=== PATIENT | female | born 1940 | race Caucasian/White ===

== ENCOUNTER → 2019-05-30 14:17 | Outpatient (CLI) | payer MEDICARE, BC, SELFPAY ==
--- NOTE | 2019-05-30 14:19 | DI.RAD.S_ITS ---
PROCEDURE: XR LUMBAR SPINE MIN 4V INDICATIONS: Bilateral hip DJD TECHNIQUE: 5 views of the lumbar spine were acquired. COMPARISON: None. FINDINGS: Bones: No fracture or focal osseous destruction. Multilevel degenerative endplate sclerosis and spurring. Diffuse facet arthropathy. Diffuse mild to moderate disc space narrowing throughout the lumbar spine. Mild L5-S1 disc space narrowing. Bilateral hip joint degeneration. Mild dextrocurvature centered at L3 Soft tissues: Overlying bowel gas pattern is normal. No suspicious soft tissue calcifications. Oblique images: No pars defects. IMPRESSION: Diffuse lumbar spondylosis and facet arthropathy as above. Mild dextrocurvature. Dictated by: John Abrams M.D. on 05/30/2019 at 15:28 Approved by: John Abrams M.D. on 05/30/2019 at 15:30
--- NOTE | 2019-05-30 14:19 | DI.RAD.S_ITS ---
PROCEDURE: XR HIP W PEL IF DONE LT MIN 4V INDICATIONS: Bilateral hip DJD TECHNIQUE: AP pelvis with lateral view(s) of the left and right hip(s). COMPARISON: None. FINDINGS: Bones: No fractures or dislocations. Pelvic ring appears intact. No suspicious bony lesions. Lower lumbar spondylosis. Mild to moderate bilateral hip joint degeneration. Degenerative sclerosis and spurring also present at the pubis symphysis. Soft tissues: The visualized bowel gas pattern is normal. No suspicious soft tissue calcifications. IMPRESSION: Mild-moderate bilateral hip degeneration. Lower lumbar spondylosis. Dictated by: John Abrams M.D. on 05/30/2019 at 15:30 Approved by: John Abrams M.D. on 05/30/2019 at 15:33
== END ==
PROVIDERS: PCP Family Medicine; Visit Provider Physical Medicine & Rehabilitation
DX: M16.0 Bilateral primary osteoarthritis of hip (principal); M47.27 Other spondylosis with radiculopathy, lumbosacral region
CPT/HCPCS: 72110; 73522; 99214

== ENCOUNTER → 2020-11-28 11:31 | Outpatient (CLI) | payer MEDICARE, BC, SELFPAY ==
--- NOTE | 2020-11-28 | DI.US.S_ITS ---
PROCEDURE: US RENAL COMPLETE INDICATIONS: Unspecified renal colic TECHNIQUE: Real-time scanning was performed of the kidneys and bladder, with image documentation. COMPARISON: None. FINDINGS: Kidneys: Kidneys are normal in size. Right kidney measures 9.3 cm long; left kidney measures 10.3 cm long. Right renal cortical thickness is 1.3 cm; left renal cortical thickness is 1.3 cm. Renal cortical echotexture is normal. Mild right-sided hydronephrosis or nephrolithiasis. No suspicious solid mass lesions. There are scattered right-sided simple renal cortical cysts, the largest measuring 1.8 cm in maximal dimension. Scattered echogenic foci are present, potentially small vascular calcifications versus nonobstructive punctate calculi. Bladder: Pre-void bladder volume is 195 mL. Post-void residual is 12 mL. Pre-void images demonstrate no intraluminal masses or stones. On pre-void images, bilateral ureteral jets are noted with color Doppler interrogation. (Of note, ureteral jets may not be detectable in up to 25% of cases due to insufficient differences in specific gravity between ureteral and bladder urine). Miscellaneous: No free pelvic fluid. IMPRESSION: Mild persistent right-sided hydronephrosis, etiology uncertain. Reported right flank pain. CT scan without and with contrast is recommended to assess for presence or absence of ureteral stone or some form of mass effect impinging on the course of the right ureter. Dictated by: Rich Parra M.D. on 11/28/2020 at 14:09 Approved by: Rich Parra M.D. on 11/28/2020 at 14:12
== END ==
PROVIDERS: PCP Family Medicine; Referring Provider Physician Assistant; Visit Provider Physician Assistant
DX: N23 Unspecified renal colic (principal); N13.30 Unspecified hydronephrosis; R31.9 Hematuria, unspecified; Z80.51 Family history of malignant neoplasm of kidney
CPT/HCPCS: 76770

== ENCOUNTER → 2020-12-03 08:21 | Outpatient (CLI) | payer MEDICARE, BC, SELFPAY ==
[2020-12-03 09:19] LABS: BUN Creatinine Ratio 18.9 (6-22); Blood Urea Nitrogen 17 mg/dL (7-17); Estimated Glomerular Filt Rate > 60.0 mL/min (>60)
--- NOTE | 2020-12-03 09:23 | DI.CT.S_ITS ---
PROCEDURE: CT ABDOMEN PELVIS WO/W CON INDICATIONS: unspecified renal colic TECHNIQUE: Optional 5 mm thick noncontrast images acquired from the diaphragm to the symphysis pubis. After the administration of intravenous contrast, 5 mm thick images acquired from the diaphragm to the symphysis pubis after a 10-minute delay. 2 mm thick coronal and sagittal reformats were then performed of the kidneys and ureters. For radiation dose reduction, the following was used: automated exposure control, adjustment of mA and/or kV according to patient size. COMPARISON: [facility], , US RENAL COMPLETE, 11/28/2020, 11:38. FINDINGS: Image quality: Excellent. Lung bases: Lung bases are clear. Heart size is normal. Urinary system: Both kidneys are normal in size, without hydronephrosis or nephrolithiasis on pre-contrast images. No perinephric fat stranding. There is normal bilateral renal enhancement. Renal calyces appear normal in morphology when filled with contrast. Opacified portions of both ureters demonstrate normal caliber. Bladder wall thickness is normal. No calcified bladder stones. There are multiple peripelvic cysts in the right kidney impressing upon the collecting system which, by ultrasound, give the appearance of hydronephrosis. Other solid organs: Liver is normal in size and enhancement. Gallbladder is surgically absent . Resultant biliary ductal dilatation post cholecystectomy without obstructing pancreatic mass identified. Pancreas enhances normally. Spleen is normal in size and enhancement. No adrenal nodules. Peritoneum and bowel: Bowel loops demonstrate normal wall thickness and caliber. No free fluid or air. Nodes and vessels: No retroperitoneal or mesenteric adenopathy by size criteria. Aorta and inferior vena cava are normal in size. Abdominal wall: No ventral hernias. Pelvis: No pathologic free pelvic fluid. No inguinal hernias or adenopathy. There is abnormal endometrial thickening in the fundus of the uterus measuring approximately 1.2 cm. Bones: No suspicious bony lesions. No vertebral body compression fractures. IMPRESSION: 1. Findings on prior renal ultrasound represent peripelvic cysts and not hydronephrosis. 2. No evidence of renal stone, ureteral stone, hydronephrosis, or suspicious lesion. 3. Note made of abnormal thickening of the endometrial cavity of the uterus at the level of the fundus, measuring 1.2 cm. Possible endometrial carcinoma. 4. Remote cholecystectomy, with resultant dilatation of the biliary tree. Comment: Recommend [facility] [employer] DRIVER consultation for abnormal endometrial thickening. Dictated by: Abdon Whalen M.D. on 12/03/2020 at 9:55 Approved by: Abdon Whalen M.D. on 12/03/2020 at 10:01
== END ==
PROVIDERS: PCP Family Medicine; Referring Provider Family Medicine; Visit Provider Family Medicine
DX: R31.9 Hematuria, unspecified (principal); N23 Unspecified renal colic; N28.1 Cyst of kidney, acquired; R93.89 Abnormal findings on diagnostic imaging of other specified body structures
CPT/HCPCS: 36415; 74178; 82565; 84520

== ENCOUNTER → 2020-12-23 09:13 | Outpatient (CLI) | payer MEDICARE, BC, SELFPAY ==
--- NOTE | 2020-12-23 | DI.MRI.S_ITS ---
PROCEDURE: MR LUMBAR SPINE WO CON INDICATIONS: Low back pain TECHNIQUE: Noncontrast sagittal T1 spin echo and T2 fast echo, sagittal STIR, axial T1 and T2 fast spin echo through the lumbar spine. In cases with scoliosis, additional coronal T2 fast spin echo may be performed. COMPARISON: [facility], CR, XR LUMBAR SPINE MIN 4V, 05/30/2019, 14:26. FINDINGS: Image quality: Excellent. Alignment and Curvature: There is trace retrolithesis of L1 on L2, L2 on L3. Bone Marrow: Marrow is of normal overall signal. Minimal reactive endplate changes at L2-3, L3-4, L4-5. No acute vertebral body compression fractures. Spinal Cord: Conus medullaris terminates at the L1 level. Visualized cord demonstrates normal signal and size. Paraspinous Soft Tissues: No paravertebral masses. T2 hyperintensities in the kidneys, suggestive of cyts. Moderate to severe dessication is present throughout the lumbar spine. L1-L2: Mild disc bulge without spinal stenosis. Minimal left foraminal narrowing with facet/ligamentum flavum hypertrophy. L2-L3: Mild disc bulge without spinal stenosis. Minimal left foraminal narrowing with facet/ligamentum flavum hypertrophy. L3-L4: Mild disc bulge with minimal canal narrowing. Mild left and bilateral foraminal narrowing with facet/ligamentum flavum hypertrophy. L4-L5: Mild disc bulge with mild spinal stenosis. Mild left and severe right foraminal narrowing with facet/ligamentum flavum hypertrophy. There is mild flattening of the exiting right L4 nerve root. L5-S1: Mild disc bulge without spinal stenosis. Severe right and moderate to severe left foraminal narrowing with facet and ligamentum flavum hypertrophy. There is mild flattening of the exiting right L5 nerve root. IMPRESSION: 1. Multilevel foraminal narrowing severe at L4-5 and L5-S1 secondary to facet/ligamentum flavum arthropathy. 2. Minimal to mild spinal stenosis most notable at L4-5 secondary to disc bulge with contributing effect facet/ligamentum flavum arthropathy. Dictated by: Samina Garcia M.D. on 12/24/2020 at 9:15 Approved by: Samina Garcia M.D. on 12/24/2020 at 9:45
== END ==
PROVIDERS: PCP Family Medicine; Referring Provider Student in an Organized Health Care Education/Training Program; Visit Provider Student in an Organized Health Care Education/Training Program
DX: M47.816 Spondylosis without myelopathy or radiculopathy, lumbar region (principal); M47.817 Spondylosis without myelopathy or radiculopathy, lumbosacral region; M48.061 Spinal stenosis, lumbar region without neurogenic claudication; M48.07 Spinal stenosis, lumbosacral region; M51.26 Other intervertebral disc displacement, lumbar region; R10.9 Unspecified abdominal pain
CPT/HCPCS: 72148

== ENCOUNTER → 2021-01-09 11:55 | Outpatient (CLI) | payer MEDICARE, BC, SELFPAY ==
[2021-01-09 19:41] LABS: Hematocrit 38.1 % (36-46); Hemoglobin 12.7 g/dL (12.0-16.0); Mean Corpuscular HGB Conc 33.3 % (30-36); Mean Corpuscular Hemoglobin 29.2 PG (26-34); Mean Corpuscular Volume 87.7 fL (80-100); Platelet Count 291 X10^3/uL (150-400); Red Blood Cell Count 4.34 X10^6/uL (4.0-5.2); Red Cell Distribution Width 13.3 % (11.6-14.8); White Blood Cell Count 7.8 X10^3/uL (4.5-11.0)
[2021-01-09 19:49] LABS: BUN Creatinine Ratio 23.3 (6-22); Blood Urea Nitrogen 17 mg/dL (7-17); Calcium 9.6 mg/dL (8.4-10.2); Carbon Dioxide 29 mmol/L (22-32); Chloride 106 mmol/L (98-107); Estimated Glomerular Filt Rate > 60.0 mL/min (>60); Glucose 90 mg/dL (80-110); HEMOLYSIS < 15 (0-50); Potassium 3.9 mmol/L (3.4-5.1); Sodium 141 mmol/L (137-145)
== END ==
PROVIDERS: PCP Family Medicine; Visit Provider Specialist
DX: M47.27 Other spondylosis with radiculopathy, lumbosacral region (principal); R93.89 Abnormal findings on diagnostic imaging of other specified body structures; Z01.818 Encounter for other preprocedural examination
CPT/HCPCS: 80048; 85027

== ENCOUNTER 2021-01-18 16:15 | Emergency (ER) | payer MEDICARE, BC, SELFPAY ==
[2021-01-18] VITALS (11 sets, daily range): BP systolic 141–185; BP diastolic 67–94; PULSE 77–89; RESP 14–34; TEMP 37; O2SAT 95–99
--- NOTE | 2021-01-18 16:22 | DI.CT.S_ITS ---
PROCEDURE: CT HEAD/BRAIN WO CON INDICATIONS: altered mental status TECHNIQUE: Noncontrast 4.5 mm thick angled axial sections acquired from the foramen magnum to the vertex, with coronal and sagittal reformats. For radiation dose reduction, the following was used: automated exposure control, adjustment of mA and/or kV according to patient size. COMPARISON: None. FINDINGS: Image quality: Excellent. CSF spaces: Basal cisterns are patent. No extra-axial fluid collections. The ventricles are symmetric in size and shape. Brain: No intracranial bleeds or masses. There is cerebral volume loss for age, with resultant ventricular and sulcal prominence. There are periventricular and deep white matter chronic small vessel ischemic changes. There is intracranial internal carotid artery atherosclerosis. Skull and face: Calvarium and visualized facial bones appear intact, without suspicious lesions. Sinuses: The visualized right maxillary sinus is completely opacified. There is moderate mucosal thickening within the anterior right ethmoid air cells. The paranasal sinuses otherwise appear clear. No abnormal fluid is seen within the mastoid air cells. IMPRESSION: Unremarkable intracranial study for age. Right-sided paranasal sinus disease noted. Dictated by: Garry Interiano M.D. on 01/18/2021 at 16:13 Approved by: Garry Interiano M.D. on 01/18/2021 at 16:14
[2021-01-18] MEDS: SODIUM CHLORIDE 0.9% 1,000 ML 150 ML IV (16:28)
--- NOTE | 2021-01-18 16:33 | ED_ITS ---
HPI - Altered Mental Status General Chief Complaint: Altered Mental Status Stated Complaint: Altered LOC Time Seen by Provider: 01/18/21 16:22 Source: patient and EMS Mode of arrival: EMS Limitations: no limitations History of Present Illness HPI narrative: Patient is a 80-year-old female who presents with altered mental status and possible stroke. She woke up early this morning around 5pm or6:00 a.m. and was feeling okay she got some coffee is and went to her room to do some things on the computer. She then at some point went in to see her daughter, her daughter stated that her eyes looked funny and that something was probably not right. She maybe had some slurring of speech. At that point EMS was called she was found to be hypoglycemic with a glucose of 54. She has no history of diabetes she is not on any glucose lowering medications. EMS reports that they gave her glucagon rechecked her glucose which was now well over 100 but continued have some slurred speech. She had no other focal deficits. His symptoms now have completely resolved. MD complaint: altered mental status and confusion Related Data Home Medications Medication Instructions Recorded Confirmed diazepam 5 mg tablet 5 mg PO BID PRN 05/30/19 01/07/21 metoprolol succinate 50 mg capsule 50 mg PO DAILY 05/30/19 01/07/21 sprinkle, ext. release 24 hr Allergies Allergy/AdvReac Type Severity Reaction Status Date / Time No Known Drug Allergies Allergy Verified 01/18/21 16:23 Review of Systems Review of Systems ROS Unobtainable: All systems reviewed & are unremarkable except as noted in HPI and below Constitutional Constitutional: Denies chills, Denies fever(s), Denies lethargy and Denies weakness Neurologic Neurologic: Denies weakness Patient History Medical History (Updated 01/18/21 @ 20:08 by Amrita Sood DO) Degenerative joint disease (DJD) of hip Family history of malignant neoplasm of kidney Grieving Hematuria Lumbosacral spondylosis with radiculopathy Osteoporosis Renal colic Social History Smoking Status: Former smoker Smoking Status: Former smoker alcohol intake frequency: 0-2 drinks per day Substance Use Type: does not use Exam Initial Vital Signs Initial Vital Signs: Vital Signs Temperature 98.6 F 01/18/21 16:10 Pulse Rate 77 01/18/21 16:10 Respiratory Rate 14 01/18/21 16:10 Blood Pressure 185/87 H 01/18/21 16:10 Pulse Oximetry 99 01/18/21 16:10 GENERAL: Alert 80-year-old female and in no acute distress. HEENT: Head atraumatic,EOMI, pupils reactive, face symmetric, moist mucous membranes CARDIOVASCULAR: Regular rate and rhythm without murmurs, rubs or gallops. RESPIRATORY: Breath sounds equal bilaterally, no wheezes rales or rhonchi. ABDOMEN: Soft, nontender. Normoactive bowel sounds all 4 quadrants. No guardin g or rebound. EXTREMITIES: Normal range of motion, no clubbing or edema. Neurovascularly intact NEUROLOGICAL: Alert and oriented x4.Normal gait and speech. Cranial nerves II through XII grossly intact. Good [id number], good [id number], strength equal bilaterally, no dysarthria or aphasia, sensation in tact to soft touch bilaterally, no visual changes, no facial droop SKIN: Warm, dry, no laceration, no petechiae, no rashes or lesions. Scores NIH Stroke Scale Level of Conciousness: Alert, keenly responsive Ask month/age: Answers both questions correctly. Open/close eyes, close hand: Performs both tasks correctly Best gaze horizontal: Normal Visual hampton: No visual loss Facial palsy: Normal symetrical movement Left arm drift: No drift for full 10 sec Right arm drift: No drift for full 10 sec Left leg drift: No drift for full 5 sec Right leg drift: No drift for full 5 sec Limb ataxia: Absent Sensory on face/arms/legs: Normal, no sensory loss Best language: No aphasia, normal Dysarthria: Normal Extinction or inattention: No abnormality Total NIH Stroke scale score: 0 Course Orders Ordered: ED Orders 01/18/21 16:22 CT head/brain wo con Stat Urinalysis and Microscopic Stat 01/18/21 16:31 COVID19 - ADMIT (FIRER RETORT swab/PCR) Stat Urine Drug Screen, Rapid Stat EKG-12 Lead Stat 01/18/21 16:40 Blood Culture Stat 01/18/21 16:45 Acetaminophen Stat Complete Blood Count AUTO DIFF Stat Comprehensive Metabolic Panel Stat Ethanol (ETOH) Stat Lactate (Lactic Acid) Stat Partial Thromboplastin Time Stat Procalcitonin Stat Prothrombin Time INR Stat Salicylate Stat Thyroid Stimulating Hormone Stat Troponin & CK Cardiac Panel Stat Sodium Chloride (Normal Saline 0.9%) 1,000 mls @ 150 mls/hr IV CONT ZOE Last Admin: 01/18/21 16:28 Dose: 150 mls/hr Documented by: ADRIANA Vital Signs Vital signs: Vital Signs - 8 hr 01/18/21 16:10 01/18/21 16:20 01/18/21 16:30 Temperature 98.6 F Pulse Rate 77 83 79 Respiratory Rate 14 26 H Blood Pressure 185/87 H Pulse Oximetry 99 97 96 01/18/21 17:01 01/18/21 17:03 01/18/21 17:30 Temperature Pulse Rate 82 77 80 Respiratory Rate 34 H 27 H 25 H Blood Pressure 164/70 H 155/87 H Pulse Oximetry 96 99 97 01/18/21 18:00 01/18/21 18:30 01/18/21 19:00 Temperature Pulse Rate 80 82 78 Respiratory Rate 29 H 21 21 Blood Pressure 147/89 H 158/94 H 155/84 H Pulse Oximetry 97 97 98 MDM - Altered Mental Status Lab Data Attestation: I reviewed the patient's lab results. Result diagrams: 01/18/21 16:45 01/18/21 16:45 Labs: Lab Results 01/18/21 01/18/21 01/18/21 Range/Units 16:31 16:45 16:45 WBC 7.0 (4.5-11.0) X10^3/uL RBC 4.36 (4.0-5.2) X10^6/uL Hgb 12.7 (12.0-16.0) g/dL Hct 38.3 (36-46) % MCV 87.7 (80-100) fL MCH 29.1 (26-34) PG MCHC 33.2 (30-36) % RDW 13.4 (11.6-14.8) % Plt Count 268 (150-400) X10^3/uL Neut % (Auto) 73.7 (50-75) % Lymph % (Auto) 18.7 L (25-40) % [place] % (Auto) 5.9 (3-14) % Eos % (Auto) 1.3 L (2-4) % Baso % (Auto) 0.4 (0-2) % Neut # (Auto) 5100 (6529-0613) /uL Lymph # (Auto) 1300 (2995-1672) /uL [place] # (Auto) 400 (0-900) /uL Eos # (Auto) 100 (0-450) /uL Baso # (Auto) 0 (0-100) /uL PT 10.5 (10.1-12.7) SECONDS INR 1.0 (0.9-1.3) APTT 33 (26.4-36.2) SECONDS Sodium (137-145) mmol/L Potassium (3.4-5.1) mmol/L Chloride (98-107) mmol/L Carbon Dioxide (22-32) mmol/L BUN (7-17) mg/dL Creatinine (0.52-1.04) mg/dL Estimated GFR (>60) mL/min BUN/Creatinine Ratio (6-22) Glucose (80-110) mg/dL Lactate (0.7-2.1) mmol/L Calcium (8.4-10.2) mg/dL Total Bilirubin (0.2-1.3) mg/dL AST (14-36) IU/L ALT (<35) IU/L Alkaline Phosphatase (38-126) U/L Total Creatine Kinase (30-135) U/L CK-MB (CK-2) CK-MB (CK-2) Rel Index Troponin I (0.01-0.034) ng/mL Total Protein (6.3-8.2) g/dL Albumin (3.5-5.0) g/dL Globulin (1.7-4.1) g/dL Albumin/Globulin Ratio (1.0-2.8) Procalcitonin (<0.5) ng/mL TSH (0.47-4.68) uIU/mL Salicylates (<20) mg/dL Acetaminophen (10-30) ug/mL Ethyl Alcohol ( - 10) mg/dL SARS-CoV-2 (PCR) Negative (Negative) 01/18/21 01/18/21 01/18/21 Range/Units 16:45 16:45 16:45 WBC (4.5-11.0) X10^3/uL RBC (4.0-5.2) X10^6/uL Hgb (12.0-16.0) g/dL Hct (36-46) % MCV (80-100) fL MCH (26-34) PG MCHC (30-36) % RDW (11.6-14.8) % Plt Count (150-400) X10^3/uL Neut % (Auto) (50-75) % Lymph % (Auto) (25-40) % [place] % (Auto) (3-14) % Eos % (Auto) (2-4) % Baso % (Auto) (0-2) % Neut # (Auto) (6879-2076) /uL Lymph # (Auto) (9809-5240) /uL [place] # (Auto) (0-900) /uL Eos # (Auto) (0-450) /uL Baso # (Auto) (0-100) /uL PT (10.1-12.7) SECONDS INR (0.9-1.3) APTT (26.4-36.2) SECONDS Sodium 139 (137-145) mmol/L Potassium 3.3 L (3.4-5.1) mmol/L Chloride 106 (98-107) mmol/L Carbon Dioxide 26 (22-32) mmol/L BUN 11 (7-17) mg/dL Creatinine 0.69 (0.52-1.04) mg/dL Estimated GFR > 60.0 (>60) mL/min BUN/Creatinine Ratio 15.9 (6-22) Glucose 173 H (80-110) mg/dL Lactate 1.6 (0.7-2.1) mmol/L Calcium 9.7 (8.4-10.2) mg/dL Total Bilirubin 0.3 (0.2-1.3) mg/dL AST 29 (14-36) IU/L ALT 19 (<35) IU/L Alkaline Phosphatase 58 (38-126) U/L Total Creatine Kinase 69 (30-135) U/L CK-MB (CK-2) TNP CK-MB (CK-2) Rel Index TNP Troponin I < 0.012 (0.01-0.034) ng/mL Total Protein 7.1 (6.3-8.2) g/dL Albumin 4.0 (3.5-5.0) g/dL Globulin 3.1 (1.7-4.1) g/dL Albumin/Globulin Ratio 1.3 (1.0-2.8) Procalcitonin 0.04 (<0.5) ng/mL TSH 1.42 (0.47-4.68) uIU/mL Salicylates < 1.0 (<20) mg/dL Acetaminophen < 10 L (10-30) ug/mL Ethyl Alcohol < 10 ( - 10) mg/dL SARS-CoV-2 (PCR) (Negative) Point of Care Testing Glucose POC [address] scan - head: Radiologist's Impression: PROCEDURE: CT HEAD/BRAIN WO CON INDICATIONS: altered mental status TECHNIQUE: Noncontrast 4.5 mm thick angled axial sections acquired from the foramen magnum to the vertex, with coronal and sagittal reformats. For radiation dose reduction, the following was used: automated exposure control, adjustment of mA and/or kV according to patient size. COMPARISON: None. FINDINGS: Image quality: Excellent. CSF spaces: Basal cisterns are patent. No extra-axial fluid collections. The ventricles are symmetric in size and shape. Brain: No intracranial bleeds or masses. There is cerebral volume loss for age, with resultant ventricular and sulcal prominence. There are periventricular and deep white matter chronic small vessel ischemic changes. There is intracranial internal carotid artery atherosclerosis. Skull and face: Calvarium and visualized facial bones appear intact, without suspicious lesions. Sinuses: The visualized right maxillary sinus is completely opacified. There is moderate mucosal thickening within the anterior right ethmoid air cells. The paranasal sinuses otherwise appear clear. No abnormal fluid is seen within the mastoid air cells. IMPRESSION: Unremarkable intracranial study for age. Right-sided paranasal sinus disease noted. Dictated by: Garry Interiano M.D. on 01/18/2021 at 16:13 ECG Data Attestation: I personally reviewed and interpreted this ECG as follows: Prior ECG tracings: available for review Interpretation: Normal sinus rhythm rate 77 p.r. interval 172 QRS [address] changes or T-wave inversions MDM Narrative Medical decision making narrative: Patient initially was hypoglycemic with some speech difficulty symptoms have now come completely resolved. I believe her symptoms to be related to hypoglycemia and not to do stroke. She has NIH of [address] are overall reassuring. Unclear why she was hypoglycemic. Patient actually had an abdominal CT within the last 1 month which did not show any abnormality to explain hypoglycemia. I have discussed with patient that she needs to eat small frequent meals filled with protein and complex carbohydrates. Discharge Plan Departure Patient Disposition: Home Clinical Impression: Hypoglycemia Instructions: DI for Hypoglycemia Activity Restrictions/Additional Instructions: *You have been diagnosed with low blood sugar *What to do: At this time please eat regular frequent small meals. Your sugar was low likely contributing to your difficulty in speech today. Blood work is otherwise reassuring along with a CT scan of your head. You may require further testing evaluation by her primary care provider *Continue to take medications as directed *Follow up with your primary care provider in 2-3 days *Return to ER if you should have increased confusion, difficulty speaking, weakness numbness or tingling or any new, worsening or concerning symptoms Prescriptions: No Action metoprolol succinate 50 mg capsule,sprinkle,ER 24hr 50 mg PO DAILY RF: 0 diazepam 5 mg tablet 5 mg PO BID PRNRF: 0 Referrals: [place] J[facility] MD [Primary Care Provider] -
[2021-01-18 17:00] LABS: Add Manual Diff / Slide Review NO; Basophils Absolute Auto 0 /uL (0-100); Basophils Percent Auto 0.4 % (0-2); Eosinophils Absolute Auto 100 /uL (0-450); Eosinophils Percent Auto 1.3 % (2-4); Hematocrit 38.3 % (36-46); Hemoglobin 12.7 g/dL (12.0-16.0); Lymphocytes Absolute Auto 1300 /uL (1100-4500); Lymphocytes Percent Auto 18.7 % (25-40); Mean Corpuscular HGB Conc 33.2 % (30-36); Mean Corpuscular Hemoglobin 29.1 PG (26-34); Mean Corpuscular Volume 87.7 fL (80-100); Monocytes Absolute Auto 400 /uL (0-900); Monocytes Percent Auto 5.9 % (3-14); Neutrophils Absolute Auto 5100 /uL (1500-7000); Neutrophils Percent Auto 73.7 % (50-75); Platelet Count 268 X10^3/uL (150-400); Red Blood Cell Count 4.36 X10^6/uL (4.0-5.2); Red Cell Distribution Width 13.4 % (11.6-14.8)
[2021-01-18 17:02] LABS: Prothrombin Time 10.5 SECONDS (10.1-12.7)
[2021-01-18 17:05] LABS: PTT Partial Thromboplastin Tim 33 SECONDS (26.4-36.2)
[2021-01-18 17:57] LABS: COVID19 - ADMIT (NP swab/PCR) Negative (Negative)
[2021-01-18 18:01] LABS: Acetaminophen < 10 ug/mL (10-30); Alanine Aminotransferase 19 IU/L (<35); Albumin Globulin Ratio 1.3 (1.0-2.8); Alkaline Phosphatase 58 U/L (38-126); Aspartate Aminotransferase 29 IU/L (14-36); BUN Creatinine Ratio 15.9 (6-22); Bilirubin Total 0.3 mg/dL (0.2-1.3); Blood Urea Nitrogen 11 mg/dL (7-17); Calcium 9.7 mg/dL (8.4-10.2); Carbon Dioxide 26 mmol/L (22-32); Chloride 106 mmol/L (98-107); Creatine Kinase 69 U/L (30-135); Estimated Glomerular Filt Rate > 60.0 mL/min (>60); Ethanol (ETOH) < 10 mg/dL; Globulin 3.1 g/dL (1.7-4.1); Glucose 173 mg/dL (80-110); HEMOLYSIS 17 (0-50); Potassium 3.3 mmol/L (3.4-5.1); Salicylate < 1.0 mg/dL (<20); Sodium 139 mmol/L (137-145); Total Protein 7.1 g/dL (6.3-8.2)
[2021-01-18 18:02] LABS: Lactate (Lactic Acid) 1.6 mmol/L (0.7-2.1)
[2021-01-18 18:12] LABS: Troponin I < 0.012 ng/mL (0.01-0.034)
[2021-01-18 18:17] LABS: Procalcitonin 0.04 ng/mL (<0.5)
[2021-01-18 18:32] LABS: Thyroid Stimulating Hormone 1.42 uIU/mL (0.47-4.68)
[2021-01-18 20:33] LABS: Bacteria Urine None Seen
[2021-01-18 21:02] LABS: Ur Creatinine Normal (Normal); Ur Specific Gravity Normal (Normal); Urine pH Normal (Normal)
[2021-01-18 21:03] LABS: UR Morphine/Opiate cutoff 300 Negative (Negative); Urine Amphetamines Negative (Negative); Urine Barbiturates Negative (Negative); Urine Benzodiazepines Positive (Negative); Urine Cocaine Negative (Negative); Urine MDMA Negative (Negative); Urine Methadone Negative (Negative); Urine Methamphetamines Negative (Negative); Urine Oxycodone Negative (Negative); Urine Phencyclidine Negative (Negative); Urine Tetrahydrocannabinol Negative (Negative); Urine Tricyclic Antidepressant Positive (Negative)
[2021-01-18 21:08] LABS: Appearance Urine UA CLEAR; Bilirubin Urine UA NEGATIVE (NEGATIVE); Color Urine UA YELLOW; Glucose Urine UA 1+ g/dL (Negative); Ketones Urine UA NEGATIVE (NEGATIVE); Leukocyte Esterase Urine UA NEGATIVE (NEGATIVE); Nitrite Urine UA NEGATIVE (Negative); Occult Blood Urine UA 2+ (Negative); Protein Urine UA NEGATIVE (Negative); Specific Gravity Urine UA 1.015 (1.000-1.035); Urobilinogen Urine UA 0.2 E.U./dL (0.2)
[2021-01-18 21:09] LABS: Culture Indicated Urine Cult Not Indicated; RBC Urine 1-5/HPF (0-5/HPF); WBC Urine 0-1/HPF (0-5/HPF)
== END 2021-01-18 20:28 | disposition home or self-care (01) ==
PROVIDERS: Emergency Provider Emergency Medicine; PCP Urology
DX: E16.2 Hypoglycemia, unspecified (principal); R41.82 Altered mental status, unspecified; Z20.822 Contact with and (suspected) exposure to COVID-19
CPT/HCPCS: 36415; 70450; 80053; 80305; 80320; 80329; 81001; 82550; 82962; 83605; 84145; 84443; 84484; 85025; 85610; 85730; 87040; 87635; 93005; 93010; 96360; 96361; 99284; C9803; G0480

== ENCOUNTER → 2021-09-25 08:07 | Outpatient (CLI) | payer MEDICARE, BC, SELFPAY ==
[2021-09-25 20:11] LABS: HDL Cholesterol 55 mg/dL (40-60); Hemoglobin A1C% w Est Avg Glu 5.2 % (4.0-6.0)
[2021-09-25 20:27] LABS: NT-proBNP (BNP-Adult 18+) 278 pg/mL (<450)
[2021-09-30 16:20] LABS: Immunoglobulin A, Serum 113 mg/dL (64-422); Immunoglobulin G,Serum 1032 mg/dL (586-1602); Immunoglobulin M, Serum 90 mg/dL (26-217)
== END ==
PROVIDERS: Internal Medicine Cardiovascular Disease; PCP Urology; Referring Provider Physician Assistant; Visit Provider Physician Assistant
DX: Z13.1 Encounter for screening for diabetes mellitus (principal); I10 Essential (primary) hypertension; R06.02 Shortness of breath; R00.2 Palpitations; G47.20 Circadian rhythm sleep disorder, unspecified type; R06.2 Wheezing; E78.5 Hyperlipidemia, unspecified; R07.2 Precordial pain; I49.3 Ventricular premature depolarization
CPT/HCPCS: 82784; 83036; 83718; 83880; 84155; 84443; 86334

== ENCOUNTER → 2022-01-14 12:00 | Outpatient (CLI) | payer MEDICARE, BC, SELFPAY ==
--- NOTE | 2022-01-14 | DI.US.S_ITS ---
PROCEDURE: US PELVIC COMPLETE INDICATIONS: THICKENED ENDOMETRIUM TECHNIQUE: Real-time scanning was performed of the pelvic organs, with image documentation. Additional endovaginal scanning was necessary due to incomplete visualization of the adnexal and endometrial structures by transabdominal scanning. COMPARISON: None. FINDINGS: Uterus: Uterus is anteverted and normal in size at 4.3 x 2.3 x 1.4 cm. The myometrium is homogeneous. The endometrium measures 2.6 mm combined thickness. Uterus is sonographically normal. Ovaries: Ovaries are not visualized and cannot be evaluated. Other: No pathologic free abdominal or pelvic fluid. IMPRESSION: 1. Endometrium measures 2.6 millimeters in combined thickness. 2. Ovaries not identified and cannot be evaluated. Dictated by: Alayna Mcclure MD, PhD on 01/14/2022 at 15:29 Approved by: Alayna Mcclure MD, PhD on 01/14/2022 at 15:31 We strive to produce accurate, complete, and clear reports of imaging services. To assist us in improving patient care, this report was composed using standard report templates and voice recognition software. Therefore, it may contain abnormal punctuation, misrecognitions, insertions and/or omissions. Occasional wrong-word or sound-alike substitutions may occur. Though we review the report and make efforts to correct it, we do recommend that the report be read carefully in proper context to recognize any text inaccuracies.
== END ==
PROVIDERS: PCP Physician Assistant; Referring Provider Urology; Visit Provider Specialist
DX: R93.89 Abnormal findings on diagnostic imaging of other specified body structures (principal)
CPT/HCPCS: 76830; 76856

== ENCOUNTER → 2023-01-01 11:27 | Outpatient (CLI) | payer MEDICARE, BC, SELFPAY ==
[2023-01-01 20:30] LABS: Alanine Aminotransferase 21 IU/L (<35); Albumin 3.8 g/dL (3.5-5.0); Albumin Globulin Ratio 1.5 (1.0-2.8); Alkaline Phosphatase 58 U/L (38-126); Aspartate Aminotransferase 22 IU/L (14-36); BUN Creatinine Ratio 19.6 (6-22); Bilirubin Total 0.5 mg/dL (0.2-1.3); Bilirubin Unconjugated 0.1 mg/dL (0.0-1.1); Blood Urea Nitrogen 19 mg/dL (7-17); Calcium 9.5 mg/dL (8.4-10.2); Carbon Dioxide 30 mmol/L (22-32); Chloride 102 mmol/L (98-107); Estimated Glomerular Filt Rate 58 mL/min (>60); Globulin 2.6 g/dL (1.7-4.1); Glucose 85 mg/dL (80-110); HEMOLYSIS < 15 (0-50); Potassium 3.8 mmol/L (3.4-5.1); Sodium 138 mmol/L (137-145); Total Protein 6.4 g/dL (6.3-8.2)
[2023-01-01 20:39] LABS: Erythrocyte Sedimentation Rate 24 MM/HR (0-20)
== END ==
PROVIDERS: PCP Physician Assistant; Visit Provider Family Medicine
DX: E87.6 Hypokalemia (principal); I10 Essential (primary) hypertension; K63.0 Abscess of intestine; Z86.19 Personal history of other infectious and parasitic diseases
CPT/HCPCS: 80048; 80076; 85651

== ENCOUNTER → 2023-03-09 13:26 | Outpatient (CLI) | payer MEDICARE, BC, SELFPAY ==
[2023-03-09 20:18] LABS: Add Manual Diff / Slide Review NO; Basophils Absolute Auto 0 /uL (0-100); Basophils Percent Auto 0.5 % (0-2); Eosinophils Absolute Auto 100 /uL (0-450); Eosinophils Percent Auto 1.8 % (2-4); Hematocrit 38.4 % (36-46); Lymphocytes Absolute Auto 2500 /uL (1100-4500); Lymphocytes Percent Auto 33.9 % (25-40); Mean Corpuscular HGB Conc 33.8 % (30-36); Mean Corpuscular Hemoglobin 29.4 PG (26-34); Mean Corpuscular Volume 87.2 fL (80-100); Monocytes Absolute Auto 500 /uL (0-900); Monocytes Percent Auto 7.2 % (3-14); Neutrophils Absolute Auto 4200 /uL (1500-7000); Neutrophils Percent Auto 56.6 % (50-75); Platelet Count 269 X10^3/uL (150-400); Red Cell Distribution Width 14.1 % (11.6-14.8); White Blood Cell Count 7.4 X10^3/uL (4.5-11.0)
[2023-03-09 20:22] LABS: Alanine Aminotransferase 26 IU/L (<35); Albumin 3.9 g/dL (3.5-5.0); Albumin Globulin Ratio 1.4 (1.0-2.8); Alkaline Phosphatase 67 U/L (38-126); Aspartate Aminotransferase 29 IU/L (14-36); BUN Creatinine Ratio 19.1 (6-22); Bilirubin Total 0.4 mg/dL (0.2-1.3); Blood Urea Nitrogen 18 mg/dL (7-17); Calcium 9.6 mg/dL (8.4-10.2); Carbon Dioxide 28 mmol/L (22-32); Chloride 103 mmol/L (98-107); Estimated Glomerular Filt Rate > 60 mL/min (>60); Globulin 2.8 g/dL (1.7-4.1); Glucose 86 mg/dL (80-110); HEMOLYSIS < 15 (0-50); Potassium 3.8 mmol/L (3.4-5.1); Sodium 139 mmol/L (137-145); Total Protein 6.7 g/dL (6.3-8.2)
== END ==
PROVIDERS: PCP Family Medicine; Visit Provider Family Medicine
DX: I10 Essential (primary) hypertension (principal); K63.0 Abscess of intestine; K57.92 Diverticulitis of intestine, part unspecified, without perforation or abscess without bleeding; E87.6 Hypokalemia
CPT/HCPCS: 80053; 85025

== ENCOUNTER → 2023-04-30 13:34 | Outpatient (CLI) | payer MEDICARE, BC, SELFPAY ==
[2023-04-30 19:46] LABS: Blood Urea Nitrogen 25 mg/dL (7-17); Estimated Glomerular Filt Rate 56 mL/min (>60); Magnesium 2.2 mg/dL (1.6-2.3); Phosphorous 3.8 mg/dL (2.8-4.1)
[2023-05-02 10:11] LABS: Calcium 7.8 mg/dL (8.7-10.3); Parathyroid Hormone, Intact 48 pg/mL (15-65)
[2023-05-06 16:47] LABS: ANA Screen, IFA Negative (.)
== END ==
PROVIDERS: PCP Family Medicine; Visit Provider Family Medicine
DX: I48.0 Paroxysmal atrial fibrillation (principal); M81.0 Age-related osteoporosis without current pathological fracture; Z51.81 Encounter for therapeutic drug level monitoring; H04.123 Dry eye syndrome of bilateral lacrimal glands
CPT/HCPCS: 82310; 82565; 83735; 83970; 84100; 84520; 86038

== ENCOUNTER → 2023-05-06 11:59 | Outpatient (CLI) | payer MEDICARE, BC, SELFPAY ==
--- NOTE | 2023-05-06 12:00 | DI.RAD.S_ITS ---
Bone Density Report Name: GAVIN VEGA Age: 82 Sex: Female Ethnicity: White Date of : 1940 Indication: postmenopausal; screening for osteoporosis; Referring Provider: CONCHIS CARTER Study: Bone densitometry was performed. Exam Date: May 06, 2023 Accession number: [id number] Bone Density: Region BMD T-score Z-score Classification AP Spine(L1-L4) 0.966 -0.7 2.0 Normal Femoral Neck (Left) 0.295 -5.0 -2.6 Osteoporosis Total Hip (Left) 0.514 -3.5 -1.3 Osteoporosis Femoral Neck (Right) 0.547 -2.7 -0.3 Osteoporosis Total Hip (Right) 0.585 -2.9 -0.7 Osteoporosis Total Hip Mean 0.549 -3.2 -1.0 Osteoporosis World Health Organization criteria for BMD impression classify patients as: Normal (T-score at or above -1.0), Osteopenia (T-score between -1.0 and -2.5), or Osteoporosis (T-score at or below -2.5). 10-year Fracture Risk: FRAX not reported because: Some T-score for Spine Total or Hip Total or Femoral Neck at or below -2.5 Impression: The patient has osteoporosis, based on the Left Femoral Neck T-score. Discussion: HIGH RISK OF FRACTURE. BONE DENSITY IS UNDESIRABLY LOW AT ONE OR MORE SKELETAL SITES, CONSISTENT WITH OSTEOPOROSIS. ALSO, BONE DENSITY IS LOWER THAN EXPECTED FOR AGE AND SEX AT ONE OR MORE SKELETAL SITES; RECOMMEND A DILIGENT SEARCH FOR SECONDARY CAUSES OF BONE LOSS. This patient's lowest T-score meets the World Health Organization's (WHO) criteria for osteoporosis at one or more sites (T-score -2.5 or below). In untreated patients, the risk of osteoporotic fracture increases approximately two-fold for each 1.0 SD decrease in T-score. Low bone density is not the only risk factor for fracture; also consider factors such as patient's age, frailty or poor health, risk of falling, risk of injury, previous osteoporotic fracture, family history of osteoporosis, cigarette smoking, low body weight, etc. Not everyone with low bone mineral density has osteoporosis; osteomalacia and other metabolic bone disorders should also be considered. Patients who have osteoporosis should be evaluated for specific diseases and conditions (secondary causes) that may cause or contribute to bone loss. The [place] [employer] (AACE) and National Osteoporosis Foundation (NOF) recommend pharmacologic intervention for all postmenopausal women whose T-score is in this range. Also, this patient's bone mineral density is below the range considered normal for healthy age-, sex-, and race-matched controls at least one site (Z-score -2.0 or below). This warrants careful evaluation for diseases and conditions that may contribute to accelerated bone loss. The patient should follow a healthful lifestyle (good nutrition with adequate calcium and vitamin D, and appropriate weight-bearing exercise). Follow-Up: Consider a repeat BMD and Vertebral Fracture Assessment (VFA) exam in 2 years or sooner if medically necessary, to reassess this patient's status. Reported by: AMALIA PATTERSON MD on 05/06/2023 12:43:00 PM.
== END ==
PROVIDERS: PCP Family Medicine; Referring Provider Family Medicine; Visit Provider Family Medicine
DX: M81.0 Age-related osteoporosis without current pathological fracture (principal); Z78.0 Asymptomatic menopausal state; Z79.83 Long term (current) use of bisphosphonates
CPT/HCPCS: 77080

== ENCOUNTER → 2023-09-28 11:02 | Outpatient (CLI) | payer MEDICARE, BC, SELFPAY ==
[2023-09-28 21:20] LABS: Alanine Aminotransferase 23 IU/L (<35); Albumin Globulin Ratio 1.5 (1.0-2.8); Alkaline Phosphatase 63 U/L (38-126); Aspartate Aminotransferase 31 IU/L (14-36); Bilirubin Total 0.7 mg/dL (0.2-1.3); Blood Urea Nitrogen 23 mg/dL (7-17); Calcium 9.9 mg/dL (8.4-10.2); Carbon Dioxide 30 mmol/L (22-32); Chloride 100 mmol/L (98-107); Cholesterol 153 mg/dL (140-199); Estimated Glomerular Filt Rate 56 mL/min (>60); Globulin 2.7 g/dL (1.7-4.1); Glucose 87 mg/dL (80-110); HDL Cholesterol 56 mg/dL (40-60); HEMOLYSIS < 15 (0-50); LDL Cholesterol Calculated 69 mg/dL (<100); Phosphorous 3.5 mg/dL (2.8-4.1); Potassium 3.8 mmol/L (3.4-5.1); Sodium 138 mmol/L (137-145); Total Protein 6.7 g/dL (6.3-8.2); Triglycerides 139 mg/dL (35-150)
[2023-09-28 21:23] LABS: Add Manual Diff / Slide Review NO; Basophils Absolute Auto 100 /uL (0-100); Basophils Percent Auto 0.6 % (0-2); Eosinophils Absolute Auto 100 /uL (0-450); Eosinophils Percent Auto 1.1 % (2-4); Hematocrit 40.8 % (36-46); Hemoglobin 13.7 g/dL (12.0-16.0); Lymphocytes Absolute Auto 2600 /uL (1100-4500); Lymphocytes Percent Auto 29.1 % (25-40); Mean Corpuscular HGB Conc 33.5 % (30-36); Mean Corpuscular Hemoglobin 29.3 PG (26-34); Mean Corpuscular Volume 87.4 fL (80-100); Monocytes Absolute Auto 700 /uL (0-900); Monocytes Percent Auto 7.7 % (3-14); Neutrophils Absolute Auto 5600 /uL (1500-7000); Neutrophils Percent Auto 61.5 % (50-75); Platelet Count 285 X10^3/uL (150-400); Red Blood Cell Count 4.67 X10^6/uL (4.0-5.2); Red Cell Distribution Width 13.4 % (11.6-14.8)
[2023-09-28 21:35] LABS: Vitamin D 25 Hydroxy (D3) 54.6 ng/mL (30.0-100.0)
== END ==
PROVIDERS: PCP Family Medicine; Visit Provider Family Medicine
DX: Z51.81 Encounter for therapeutic drug level monitoring (principal); M81.0 Age-related osteoporosis without current pathological fracture; E78.5 Hyperlipidemia, unspecified; E83.51 Hypocalcemia; I10 Essential (primary) hypertension; I48.0 Paroxysmal atrial fibrillation; K21.9 Gastro-esophageal reflux disease without esophagitis
CPT/HCPCS: 80053; 80061; 82306; 84100; 85025

== ENCOUNTER → 2023-11-26 10:48 | Outpatient (CLI) | payer MEDICARE, BC, SELFPAY ==
[2023-11-26 20:38] LABS: Alanine Aminotransferase 23 IU/L (<35); Albumin 3.7 g/dL (3.5-5.0); Albumin Globulin Ratio 1.3 (1.0-2.8); Alkaline Phosphatase 67 U/L (38-126); Aspartate Aminotransferase 29 IU/L (14-36); BUN Creatinine Ratio 23.2 (6-22); Bilirubin Total 0.6 mg/dL (0.2-1.3); Blood Urea Nitrogen 23 mg/dL (7-17); Calcium 9.9 mg/dL (8.4-10.2); Carbon Dioxide 33 mmol/L (22-32); Chloride 104 mmol/L (98-107); Estimated Glomerular Filt Rate 57 mL/min (>60); Globulin 2.8 g/dL (1.7-4.1); Glucose 93 mg/dL (80-110); HEMOLYSIS < 15 (0-50); Sodium 140 mmol/L (137-145); Total Protein 6.5 g/dL (6.3-8.2)
== END ==
PROVIDERS: PCP Family Medicine; Visit Provider Physician Assistant Medical
DX: E83.51 Hypocalcemia (principal)
CPT/HCPCS: 80053

== ENCOUNTER → 2024-03-31 12:59 | Outpatient (CLI) | payer MEDICARE, BC, SELFPAY ==
[2024-03-31 21:10] LABS: Add Manual Diff / Slide Review NO; Basophils Absolute Auto 0 /uL (0-100); Basophils Percent Auto 0.4 % (0-2); Eosinophils Absolute Auto 100 /uL (0-450); Eosinophils Percent Auto 1.5 % (2-4); Hematocrit 38.1 % (36-46); Lymphocytes Absolute Auto 2200 /uL (1100-4500); Lymphocytes Percent Auto 33.8 % (25-40); Mean Corpuscular HGB Conc 34.1 % (30-36); Mean Corpuscular Hemoglobin 30.4 PG (26-34); Mean Corpuscular Volume 89.1 fL (80-100); Monocytes Absolute Auto 300 /uL (0-900); Monocytes Percent Auto 5.3 % (3-14); Neutrophils Absolute Auto 3800 /uL (1500-7000); Platelet Count 262 X10^3/uL (150-400); Red Blood Cell Count 4.28 X10^6/uL (4.0-5.2); Red Cell Distribution Width 12.9 % (11.6-14.8); White Blood Cell Count 6.5 X10^3/uL (4.5-11.0)
[2024-03-31 21:23] LABS: BUN Creatinine Ratio 23.8 (6-22); Blood Urea Nitrogen 24 mg/dL (7-17); C-Reactive Protein Quant < 0.5 mg/dL (<1.0); Calcium 9.7 mg/dL (8.4-10.2); Carbon Dioxide 29 mmol/L (22-32); Chloride 102 mmol/L (98-107); Estimated Glomerular Filt Rate 55 mL/min (>60); Glucose 114 mg/dL (80-110); HEMOLYSIS < 15 (0-50); Potassium 3.3 mmol/L (3.4-5.1); Sodium 138 mmol/L (137-145)
[2024-03-31 21:43] LABS: Erythrocyte Sedimentation Rate 11 MM/HR (0-20)
[2024-03-31 21:45] LABS: TSH w/ Reflex to FT4 2.18 uIU/mL (0.47-4.68)
== END ==
PROVIDERS: PCP Family Medicine; Visit Provider Family Medicine
DX: N18.31 Chronic kidney disease, stage 3a (principal); E83.51 Hypocalcemia; I10 Essential (primary) hypertension; I48.0 Paroxysmal atrial fibrillation; M81.0 Age-related osteoporosis without current pathological fracture; M54.6 Pain in thoracic spine; K63.0 Abscess of intestine; M67.969 Unspecified disorder of synovium and tendon, unspecified lower leg
CPT/HCPCS: 80048; 82306; 84443; 85025; 85651; 86140

== ENCOUNTER → 2024-09-15 10:37 | Outpatient (CLI) | payer MEDICARE, BC, SELFPAY ==
[2024-09-15 20:41] LABS: Add Manual Diff / Slide Review NO; Basophils Absolute Auto 0 /uL (0-100); Basophils Percent Auto 0.3 % (0-2); Eosinophils Absolute Auto 100 /uL (0-450); Eosinophils Percent Auto 0.5 % (2-4); Hematocrit 39.9 % (36-46); Hemoglobin 13.4 g/dL (12.0-16.0); Lymphocytes Absolute Auto 2300 /uL (1100-4500); Lymphocytes Percent Auto 19.5 % (25-40); Mean Corpuscular HGB Conc 33.6 % (30-36); Mean Corpuscular Hemoglobin 29.7 PG (26-34); Mean Corpuscular Volume 88.3 fL (80-100); Monocytes Absolute Auto 900 /uL (0-900); Monocytes Percent Auto 7.7 % (3-14); Neutrophils Absolute Auto 8700 /uL (1500-7000); Platelet Count 258 X10^3/uL (150-400); Red Blood Cell Count 4.51 X10^6/uL (4.0-5.2); Red Cell Distribution Width 13.5 % (11.6-14.8)
[2024-09-15 20:55] LABS: BUN Creatinine Ratio 17.1 (6-22); Blood Urea Nitrogen 18 mg/dL (7-17); Calcium 9.4 mg/dL (8.4-10.2); Carbon Dioxide 34 mmol/L (22-32); Chloride 100 mmol/L (98-107); Cholesterol 147 mg/dL (140-199); Estimated Glomerular Filt Rate 53 mL/min (>60); Glucose 97 mg/dL (80-110); HDL Cholesterol 67 mg/dL (40-60); HEMOLYSIS < 15 (0-50); LDL Cholesterol Calculated 67 mg/dL (<100); Potassium 3.2 mmol/L (3.4-5.1); Sodium 136 mmol/L (137-145); Triglycerides 65 mg/dL (35-150)
[2024-09-15 21:24] LABS: TSH w/ Reflex to FT4 1.32 uIU/mL (0.47-4.68)
== END ==
PROVIDERS: PCP Family Medicine; Referring Provider Family Medicine; Visit Provider Family Medicine
DX: E78.5 Hyperlipidemia, unspecified (principal); Z79.01 Long term (current) use of anticoagulants; E83.51 Hypocalcemia; N18.31 Chronic kidney disease, stage 3a; I12.9 Hypertensive chronic kidney disease with stage 1 through stage 4 chronic kidney disease, or unspecified chronic kidney disease
CPT/HCPCS: 80048; 80061; 84443; 85025

== ENCOUNTER → 2024-09-23 11:53 | Outpatient (CLI) | payer MEDICARE, BC, SELFPAY | PROVIDERS: PCP Family Medicine; Visit Provider Family Medicine | DX: R30.0 Dysuria (principal) | CPT/HCPCS: 87086 ==